=== PATIENT | female | born 1990 | race African-American/Black ===

== ENCOUNTER 2017-10-19 20:36 | Emergency (ER) | payer MEDICAID ==
[~2017-10-19] VITALS: Ht 160 cm; Wt 105.0 kg
[2017-10-19 20:37] VITALS: BP 147/89; PULSE 97; RESP 16; TEMP 98.1; O2SAT 100
[2017-10-19] MEDS ORDERED: SODIUM CHLORIDE 0.9% FLUSH 10 ML FLUSH IV FLUSH PRN (22:30)
--- NOTE | 2017-10-19 22:33 | PD ---
HPI Chief Complaint: Anxiety Time Seen by Provider: 22:24 Travel History International Travel<30 days: No Contact w/Intl Traveler<30days: No Traveled to known affect area: No History of Present Illness HPI 27-year-old female here for evaluation of possible anxiety/panic attacks. The patient has had 3 episodes of the last 2 days with the worst episode tonight, forcing her to drive in for evaluation. At time of my assessment the patient states that she feels improved. She states that during these attacks she becomes short of breath and feels as though she is going to . They last about 2 hours. She denies chest pain. Currently she is not short of breath. No fevers, chills, cough, recent illness. No suicidal or homicidal ideation. No history of DVT or PE. No history of DVT or PE. LMP was September 27. She states that she has had heavier than usual periods. PFSH Past Medical History Diminished Hearing: No LMP: 09/27/17 : 2 Para: 1 Miscarriage: 0 : 0 Past Surgical History Section: Yes Gynecologic Surgery: Yes (CSECTION X1) Social History Alcohol Use: No Tobacco Use: No Substance Use: No Allergies-Medications (Allergen,Severity, Reaction): Coded Allergies: No Known Allergies (Verified Adverse Reaction, Unknown, 10/19/17) Reported Meds & Prescriptions Reported Meds & Active Scripts Active No Active Prescriptions or Reported Medications Review of Systems Except as stated in HPI: all other systems reviewed are Neg Physical Exam Narrative GENERAL: Well-developed, well-nourished, comfortable, no apparent distress. SKIN: Focused skin assessment warm/dry. No pallor. HEAD: Atraumatic. Normocephalic. EYES: Pupils equal and round. No scleral icterus. No injection or drainage. ENT: No nasal bleeding or discharge. Mucous membranes pink and moist. NECK: Trachea midline. No JVD. CARDIOVASCULAR: Regular rate and rhythm. RESPIRATORY: No accessory muscle use. Clear to auscultation. Breath sounds equal bilaterally. GASTROINTESTINAL: Abdomen soft, non-tender, nondistended. Hepatic and splenic margins not palpable. MUSCULOSKELETAL: No obvious deformities. No clubbing. No cyanosis. No edema. Bilateral calves are supple, nontender. NEUROLOGICAL: Awake and alert. No obvious cranial nerve deficits. Motor grossly within normal limits. Normal speech. PSYCHIATRIC: Appropriate mood and affect; insight and judgment normal. Data Data Last Documented VS Vital Signs Date Time Temp Pulse Resp B/P (MAP) Pulse Ox O2 Delivery O2 Flow Rate FiO2 10/19/17 20:37 98.1 97 16 147/89 (108) 100 Room Air Orders Orders Complete Blood Count With Diff (10/19/17 22:30) Comprehensive Metabolic Panel (10/19/17 22:30) Iv Access Insert/Monitor (10/19/17 22:30) Ecg Monitoring (10/19/17 22:30) Oximetry (10/19/17 22:30) Sodium Chloride 0.9% Flush (Ns Flush) (10/19/17 22:30) Ed Urine Pregnancytest Poc (10/19/17 22:30) Thyroid Stimulating Hormone (10/19/17 22:30) Chest, Single Ap (10/19/17 ) Electrocardiogram (10/19/17 ) Labs Laboratory Tests Test 10/19/17 22:40 10/19/17 23:30 Blood Urea Nitrogen 13 MG/DL Creatinine 0.73 MG/DL Random Glucose 83 MG/DL Total Protein 8.2 GM/DL Albumin 3.1 GM/DL Calcium Level 8.6 MG/DL Alkaline Phosphatase 105 U/L Aspartate Amino Transf (AST/SGOT) 30 U/L Alanine Aminotransferase (ALT/SGPT) 17 U/L Total Bilirubin 0.3 MG/DL Sodium Level 140 MEQ/L Potassium Level 4.5 MEQ/L Chloride Level 107 MEQ/L Carbon Dioxide Level 28.7 MEQ/L Anion Gap 4 MEQ/L Estimat Glomerular Filtration Rate 115 ML/MIN Thyroid Stimulating Hormone 3rd Gen 1.270 uIU/ML White Blood Count 8.2 TH/MM3 Red Blood Count 3.86 MIL/MM3 Hemoglobin 12.4 GM/DL Hematocrit 36.2 % Mean Corpuscular Volume 93.7 FL Mean Corpuscular Hemoglobin 32.2 PG Mean Corpuscular Hemoglobin Concent 34.4 % Red Cell Distribution Width 12.9 % Platelet Count 257 TH/MM3 Mean Platelet Volume 8.5 FL Neutrophils (%) (Auto) 47.0 % Lymphocytes (%) (Auto) 44.1 % Monocytes (%) (Auto) 5.8 % Eosinophils (%) (Auto) 2.3 % Basophils (%) (Auto) 0.8 % Neutrophils # (Auto) 3.9 TH/MM3 Lymphocytes # (Auto) 3.6 TH/MM3 Monocytes # (Auto) 0.5 TH/MM3 Eosinophils # (Auto) 0.2 TH/MM3 Basophils # (Auto) 0.1 TH/MM3 CBC Comment DIFF FINAL Differential Comment [facility] Medical Decision Making Medical Screen Exam Complete: Yes Emergency Medical Condition: Yes Interpretation(s) EKG: Sinus, rate 69, normal axis, normal intervals, no acute ischemic abnormality. Differential Diagnosis Panic attack, anxiety, anemia, metabolic abnormality, PE unlikely (PERC negative ) Narrative Course Vital signs reviewed. CBC is unremarkable. CMP is remarkable. TSH is 1.27. Chest x-ray: No acute disease. Urine is negative. Patient was made aware of all findings. She is resting comfortably. Her signs and symptoms seem like a panic attack/anxiety. I will discharge her home with a prescription for Vistaril. She was advised to follow-up with her primary care physician this week. She was informed on when to return to the emergency department. She verbalizes understanding and agreement with plan. Diagnosis Primary Impression: Anxiety attack Referrals: Primary Care Physician 3 days Additional Instructions: Follow-up with your primary care physician this week. Return to the emergency department for worsening symptoms or any other concerns. Scripts Hydroxyzine Pamoate (Vistaril) 25 Mg Cap 25 MG PO TID Y for ANXIETY, #15 CAP 0 Refills Prov: Edilberto Raphael MD 10/20/17 Disposition: 01 DISCHARGE HOME Condition: Stable Edilberto Raphael MD Oct 19, 2017 22:33
--- NOTE | 2017-10-19 23:01 | RADRPT ---
EXAM DATE/TIME: 10/19/2017 22:44 [place] COMPARISON: No previous studies available for comparison. INDICATIONS : Shortness of breath. MEDICAL HISTORY : None. SURGICAL HISTORY : None. ENCOUNTER: Initial ACUITY: 3 days PAIN SCORE: 0/10 LOCATION: Bilateral chest FINDINGS: A single view of the chest demonstrates the lungs to be symmetrically aerated without evidence of mas s, infiltrate or effusion. The cardiomediastinal contours are unremarkable. Osseous structures are intact. CONCLUSION: No acute disease. Ld Jones MD on October 19, 2017 at 22:58 Board Certified Radiologist. This report was verified electronically.
[2017-10-19 23:37] LABS: ALKALINE PHOSPHATASE 105 U/L (45-117); TOTAL BILIRUBIN ADULT 0.3 MG/DL (0.2-1.0); TOTAL PROTEIN 8.2 GM/DL (6.4-8.2)
[2017-10-19 23:40] LABS: ALBUMIN 3.1 GM/DL (3.4-5.0); ALT (GPT) 17 U/L (10-53); AST (GOT) 30 U/L (15-37); BICARBONATE 28.7 MEQ/L (21.0-32.0); BLOOD UREA NITROGEN 13 MG/DL (7-18); CALCIUM 8.6 MG/DL (8.5-10.1); CHLORIDE 107 MEQ/L (98-107); CREATININE 0.73 MG/DL (0.50-1.00); GLOMERULAR FILTRATION RATE 115 ML/MIN (>89); GLUCOSE,RANDOM 83 MG/DL (74-106); SODIUM (NA) 140 MEQ/L (136-145)
[2017-10-20 00:29] LABS: AUTOMATED NEUTROPHIL # 3.9 TH/MM3 (1.8-7.7); BASOPHIL # 0.1 TH/MM3 (0-0.2); BASOPHIL % 0.8 % (0.0-2.0); EOSINOPHIL # 0.2 TH/MM3 (0-0.4); EOSINOPHIL % 2.3 % (0.0-4.0); HEMATOCRIT 36.2 % (35.0-46.0); HEMOGLOBIN 12.4 GM/DL (11.6-15.3); LYMPH % 44.1 % (9.0-44.0); LYMPHOCYTE # 3.6 TH/MM3 (1.0-4.8); MEAN CELL VOLUME 93.7 FL (80.0-100.0); MEAN CORPUSCULAR HEMOGLOBIN 32.2 PG (27.0-34.0); MEAN CORPUSCULAR HGB CONC 34.4 % (32.0-36.0); MEAN PLATELET VOLUME 8.5 FL (7.0-11.0); MONO % 5.8 % (0.0-8.0); MONOCYTE # 0.5 TH/MM3 (0-0.9); PLATELET COUNT 257 TH/MM3 (150-450); RED BLOOD COUNT 3.86 MIL/MM3 (4.00-5.30); RED CELL DISTRIBUTION WIDTH 12.9 % (11.6-17.2); WHITE BLOOD COUNT 8.2 TH/MM3 (4.0-11.0)
[2017-10-20] MEDS ORDERED: VIST25CA PO (00:36)
[2017-10-20 00:44] VITALS: BP 133/78
--- NOTE | 2017-10-20 12:25 | EKG ---
Date Performed: 10/19/2017 Time Performed: 22:57:06 PTAGE: 27 years EKG: Sinus rhythm NORMAL ECG PREVIOUS TRACING 04/30/2011 Since the prior tracing, there has been no significant change DOCTOR: Miguel Walsh Interpretating Date/Time 10/20/2017 12:22:57
== END 2017-10-20 00:57 | disposition home or self-care (01) ==
LOC: NEPD 20:36
DX: F41.0 Panic disorder [episodic paroxysmal anxiety] (principal); F41.1 Generalized anxiety disorder
CPT/HCPCS: 71045; 80053; 84443; 84703; 85025; 93005